=== PATIENT | female | born 1985 ===

== ENCOUNTER → 2020-07-24 | Outpatient (CLI) | payer OTHER ==
[~2020-07-24] MED LIST: PREN1TAB60 PO
[2020-07-24 16:49] LABS: BASOPHILS % (AUTO) 1 % (0-1); EOSINOPHILS % (AUTO) 2 % (1-7); LYMPHOCYTES % (AUTO) 28 % (22-44); MEAN CORPUSCULAR HEMOGLOBIN 28.8 pg (27.0-34.8); MEAN CORPUSCULAR HGB CONC 33.2 g/dL (32.4-35.8); MEAN PLATELET VOLUME 8.9 fL (7.4-10.4); MONOCYTES % (AUTO) 7 % (2-9); NEUTROPHILS % (AUTO) 62 % (42-75); PLATELET COUNT 277 x10^3/uL (130-400); RED BLOOD COUNT 5.12 x10^6/uL (3.82-5.3); RED CELL DISTRIBUTION WIDTH 13.4 % (9.6-15.2)
[2020-07-24 16:50] LABS: MICROSCOPIC INDICATED
[2020-07-24 16:59] LABS: MD NO
[2020-07-24 17:00] LABS: ANION GAP 7 mmol/L (5-15); CHLORIDE 106 mmol/L (98-107)
[2020-07-24 17:06] LABS: ALANINE AMINOTRANSFERASE 33 U/L (12-78); ALKALINE PHOSPHATASE 85 U/L (45-117); BILIRUBIN,TOTAL 0.2 mg/dL (0.2-1.0); CREATININE 0.66 mg/dL (0.55-1.02); TOTAL PROTEIN 8.2 g/dL (6.4-8.2)
== END | disposition home or self-care (01) ==
LOC: STAR 15:34
PROVIDERS: ATTEND Obstetrics & Gynecology
DX: Z01.812 Encounter for preprocedural laboratory examination (principal); Z20.822 Contact with and (suspected) exposure to COVID-19; N84.0 Polyp of corpus uteri; N93.8 Other specified abnormal uterine and vaginal bleeding
CPT/HCPCS: 36415; 80053; 81001; 84702; 85025; 87086; U0003

== ENCOUNTER 2020-07-30 14:42 | Day surgery (SDC) | payer OTHER ==
[~2020-07-30] VITALS: Ht 162.6 cm; Wt 56.0 kg
[2020-07-30] MEDS ORDERED: EPINEPHRINE 1 MG/ML, 1ML ONE (15:00)
[2020-07-30] MEDS ORDERED: LACTATED RINGERS 1,000 ML IV SCH ×2 (15:00→17:30)
[2020-07-30] MEDS ORDERED: SILVER NITRATE STICK TP ONE ×2 (15:00→18:10)
[2020-07-30] MEDS ORDERED: BUPIVACAINE/PF 0.25% ONE (15:00)
[2020-07-30] MEDS ORDERED: LIDOCAINE-MPF 1%, 2ML INFIL ONE (15:00)
[2020-07-30] MEDS ORDERED: CHLORHEXIDINE 15 ML UDC PO ONE (15:30)
[2020-07-30] MEDS ORDERED: D5%-0.45% NACL 1,000 ML IV SCH (15:30)
[2020-07-30 15:45] LABS: HCG UR SG 1.025 (1.003-1.030)
[2020-07-30] MEDS ORDERED: FENTANYL PF 250 MCG/5ML ONE (16:15)
[2020-07-30] MEDS ORDERED: MIDAZOLAM 1 MG/ML, 2ML ONE (16:15)
[2020-07-30] MEDS ORDERED: PROPOFOL 50 ML ONE (16:16)
[2020-07-30] MEDS ORDERED: KETOROLAC 30 MG/1 ML ONE (17:21)
[2020-07-30] MEDS ORDERED: DEXAMETHASONE 4 MG/ML, 1ML ONE (17:21)
[2020-07-30] MEDS ORDERED: CEFAZOLIN 1,000 MG ONE (17:21)
[2020-07-30] MEDS ORDERED: OXYC1TAB14 PO (17:27)
[2020-07-30] MEDS ORDERED: IBUP-1222 PO (17:27)
[2020-07-30] MEDS ORDERED: HYDROcodone/APAP 5/325 TABLET PO PRN (17:30)
[2020-07-30] MEDS ORDERED: ONDANSETRON 2MG/ML, 2ML IVPush PRN (17:30)
[2020-07-30] MEDS ORDERED: HYDROcodone/APAP 7.5-325MG/15ML UDC PO PRN (17:30)
[2020-07-30] MEDS ORDERED: IBUPROFEN 600 MG TABLET PO PRN (17:30)
[2020-07-30] MEDS ORDERED: PROMETHAZINE 25 MG/ML, 1ML IVPush ONE (17:30)
[2020-07-30] MEDS ORDERED: HYDROmorphone 2 MG/ML, 1ML IVPush PRN (17:30)
== END 2020-07-30 20:45 | disposition home or self-care (01) ==
LOC: OR 14:42
PROVIDERS: ATTEND Obstetrics & Gynecology
DX: N84.0 Polyp of corpus uteri (principal); N93.8 Other specified abnormal uterine and vaginal bleeding; Z98.890 Other specified postprocedural states; Z82.49 Family history of ischemic heart disease and other diseases of the circulatory system
CPT/HCPCS: 36415; 58558; 81025; 86850; 86900; 88305; J0171; J0690; J1100; J1885; J2250; J2704; J3010; J7120